=== PATIENT | male | born 1980 | race Hispanic/Latino ===

== ENCOUNTER 2021-08-19 07:45 | Emergency (ER) | payer OTHER ==
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
--- NOTE | 2021-08-19 08:25 | RAD REPORT ---
EXAM DESCRIPTION: RAD - Chest Single View - 08/19/2021 8:11 am CLINICAL HISTORY: CHEST PAIN COMPARISON: No comparisons FINDINGS: Lines: None. Lungs: No evidence of edema or pneumonia. Pleural: No significant pleural effusions or pneumothorax. Cardiac: The heart size is within normal limits. Bones: No acute fractures. Other: IMPRESSION: No acute cardiopulmonary disease.
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
[2021-08-19 09:02] VITALS: BP 122/85; TEMP 97.6; O2SAT 100
== END 2021-08-19 08:57 | disposition home or self-care (01) ==
LOC: ER 07:45
DX: G89.11 Acute pain due to trauma (principal); V59.49XA Driver of pick-up truck or van injured in collision with other motor vehicles in traffic accident, initial encounter; F17.210 Nicotine dependence, cigarettes, uncomplicated
CPT/HCPCS: 70450; 71045; 72125; 99284

== ENCOUNTER 2023-03-03 10:35 | Observation (INO) | payer OTHER ==
[2023-03-03] MEDS ORDERED: CLINDAMYCIN 900MG/D5W 900 MG/50 ML IVPB IV ONE (11:03)
[2023-03-03] MEDS ORDERED: NA CHLORIDE 0.9% 1,000 ML ONE ×2 (11:03→14:55)
[2023-03-03] MEDS ORDERED: MORPHINE 4 MG/ML SYR ONE (11:03)
[2023-03-03] MEDS ORDERED: ONDANSETRON 4 MG/2 ML VIAL ONE ×2 (11:03→12:56)
[2023-03-03] MEDS ORDERED: NA CHLORIDE 0.9% 100 ML ONE (11:04)
[2023-03-03] MEDS ORDERED: TDAP (DIPHTH,PERTUSS(ACELL),TET VAC) 0.5 ML VIAL IMVAC ONE (11:04)
[2023-03-03 11:12] LABS: Absolute Lymphocytes (CBC) 2.4 K/uL (0.7-4.9); Hematocrit 43.9 % (39.6-49.0); Lymphocytes % 39.8 % (15.3-44.8); MCV 90.6 fL (80-100); Platelets 165 thou/uL (152-406); RBC Red Blood Cell Count 4.84 M/uL (4.33-5.43)
[2023-03-03 11:16] LABS: Protime INR 0.95
--- NOTE | 2023-03-03 11:23 | RAD REPORT ---
EXAM DESCRIPTION: RAD - Chest Single View - 03/03/2023 11:18 am CLINICAL HISTORY: DYSPNEA Chest pain. COMPARISON: Chest Single View dated 08/19/2021 FINDINGS: Portable technique limits examination quality. The lungs are grossly clear. The heart is normal in size. No displaced fractures. IMPRESSION: No acute intrathoracic process suspected.
[2023-03-03 11:33] LABS: Bilirubin Total 0.4 mg/dL (0.2-1.0); Potassium 3.7 mEq/L (3.5-5.1); Protein, Total 7.6 g/dL (6.4-8.2)
--- NOTE | 2023-03-03 12:08 | RAD REPORT ---
EXAM DESCRIPTION: CT - Abdomen Angio - 03/03/2023 11:30 am CLINICAL HISTORY: Abdominal pain radiating to the back. r/o foreign body COMPARISON: Pelvis Angio dated 03/03/2023 TECHNIQUE: CT angiography of the abdomen and pelvis was performed with MIPs. All CT scans are performed using dose optimization technique as appropriate and may include automated exposure control or mA/KV adjustment according to patient size. FINDINGS: The lower lung bases are clear. The liver demonstrates no focal mass or biliary dilatation.The spleen, pancreas, adrenal glands and k idneys are within normal limits for arterial phase imaging. No significant flow abnormality is seen of the abdominal aorta and major visceral arteries. Both comm on and external iliac arteries are normal. No bowel obstruction, free fluid or abscess.There is evidence of a right lower quadrant penetrating w ound. This appears far-lateral from the right groin vessels. There is no evidence of a radiopaque for eign body. Please note that wood can be difficult to visualize by CT. No fracture seen. IMPRESSION: No significant flow abnormality is seen in the abdomen and pelvis vasculature. Penetrating wound is seen right lower quadrant lateral to the right groin. This is lateral to the rig ht inguinal vessels. No radiopaque foreign body seen, please note would can be difficult to visualize on CT.
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
--- NOTE | 2023-03-03 12:11 | ER ---
Nurse's Notes [facility] Name: Ramo Elam Age: 42 yrs Sex: Male : 1980 Arrival Date: 03/03/2023 Time: 10:35 Bed 4 Private MD: Diagnosis: Puncture wound with foreign body, right thigh, initial encounter Presentation: 03/03 10:38 Chief complaint: Patient states: piece of wood got thrown to right groin while using a aa5 table saw. Puncture wound noted to right groin, mild bleeding noted. 10:38 Coronavirus screen: At this time, the client does not indicate any symptoms associated aa5 with coronavirus-19. Ebola Screen: Patient denies travel to an Ebola-affected area in the 21 days before illness onset. Initial Sepsis Screen: Does the patient meet any 2 criteria? No. Patient's initial sepsis screen is negative. Does the patient have a suspected source of infection? No. Patient's initial sepsis screen is negative. Risk Assessment: Do you want to hurt yourself or someone else? Patient reports no desire to harm self or others. Onset of symptoms was March 03, 2023. 10:38 Acuity: LUCINA 2 aa5 10:38 Method Of Arrival: Wheelchair aa5 Historical: - Allergies: 10:38 No Known Allergies; aa5 - PMHx: 10:38 prediabetes; aa5 - PSHx: 10:38 Appendectomy; aa5 - Immunization history:: Last tetanus immunization: >5 years . - Social history:: Smoking status: Patient reports the use of cigarette tobacco products, denies chronic smoking, but will smoke occasionally. Screenin:40 [facility] ED Fall Risk Assessment (Adult) History of falling in the last 3 months, kc6 including since admission No falls in past 3 months (0 pts) Confusion or Disorientation No (0 pts) Intoxicated or Sedated No (0 pts) Impaired Gait No (0 pts) Mobility Assist Device Used No (0 pt) Altered Elimination No (0 pt) Score/Fall Risk Level 0 - 2 = Low Risk. Abuse screen: Denies threats or abuse. Denies injuries from another. Nutritional screening: No deficits noted. Tuberculosis screening: No symptoms or risk factors identified. Assessment: 10:38 General: Appears uncomfortable, Behavior is calm, cooperative. Pain: Complains of pain aa5 in right groin Pain radiates to right leg Pain currently is 8 out of 10 on a pain scale. Quality of pain is described as sharp, shooting, Is continuous. Neuro: Level of Consciousness is awake, alert, obeys commands, Oriented to person, place, time, situation. Cardiovascular: Heart tones S1 S2 present Rhythm is regular. Respiratory: Airway is patent Respiratory effort is even, unlabored, Respiratory pattern is regular, symmetrical. GI: Abdomen is round non-distended, Bowel sounds present X 4 quads. Abd is soft and non tender X 4 quads. Patient currently denies nausea, vomiting. : No signs and/or symptoms were reported regarding the genitourinary system. EENT: No signs and/or symptoms were reported regarding the EENT system. Derm: Skin is pink, warm \T\ dry. Puncture wound that is jagged noted to right groin, swelling noted to site, mild bleeding noted. Musculoskeletal: Range of motion: intact in all extremities. 10:42 Reassessment: Puncture wound to right groin dressed with iodine soaked gauze and foam aa5 tape by Dr. Wright. . 11:20 Reassessment: Patient is alert, oriented x 3, equal unlabored respirations, skin aa5 warm/dry/pink. Patient states feeling better. 11:42 Reassessment: Patient appears in no apparent distress at this time. No changes from [facility] previously documented assessment. Patient and/or family updated on plan of care and expected duration. Pain level reassessed. Patient is alert, oriented x 3, equal unlabored respirations, skin warm/dry/pink. 11:50 Reassessment: Dr. Larios at bedside with Dr. Wright speaking with pt regarding 6 surgery. 11:55 Reassessment: Dr. Larios (surgeon) at bedside . aa5 12:18 Reassessment: Patient is alert, oriented x 3, equal unlabored respirations, skin aa5 warm/dry/pink. Vital Signs: 10:38 BP 123 / 78; Pulse 72; Resp 20 S; Temp 97.7(O); Pulse Ox 99% on R/A; Weight 95.25 kg aa5 (R); Height 5 ft. 7 in. (R); 11:54 BP 130 / 92; Pulse 66; Resp 17 S; Pulse Ox 100% on R/A; kc6 10:38 Body Mass Index 32.89 (95.25 kg, 170.18 cm) aa5 [facility] Coma Score: 11:02 Eye Response: spontaneous(4). Motor Response: obeys commands(6). Verbal Response: camilla oriented(5). Total: 15. ED Course: 10:38 Patient arrived in ED. iw 10:38 Arm band placed on Patient placed in an exam room, on a stretcher. aa5 10:38 Patient has correct armband on for positive identification. Placed in gown. Bed in low kc6 position. Call light in reach. Side rails up X2. Adult w/ patient. 10:40 Miguelangel Cifuentes MD is Attending Physician. rn 10:40 Jose Wright MD is Attending Physician. rn 10:43 Liz Perez RN is Primary Nurse. aa5 10:45 Triage completed. aa5 10:51 Inserted saline lock: 20 gauge in right antecubital area, using aseptic technique. kc6 ,using aseptic technique. placed by YANETH Means Blood collected. 11:20 Chest Single View XRAY In Process Unspecified. EDMS 11:32 Abdomen Angio In Process Unspecified. EDMS 11:32 Pelvis Angio In Process Unspecified. EDMS 12:07 Anjum Larios MD is Hospitalizing Provider. camilla 12:18 No provider procedures requiring assistance completed. Patient admitted, IV remains in aa5 place. 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 Exp: kc6 08/20/2023. Lot #: [id number]. } Route: IM; Site: right deltoid; 11:55 Follow up: Response: No adverse reaction aa5 11:09 Drug: NS 0.9% IV 1000 ml Route: IV; Rate: 1 bolus; Site: right antecubital; 6 12:00 Follow up: IV Status: Completed infusion aa5 11:09 Drug: Clindamycin IVPB 900 mg Route: IVPB; Infused Over: 30 mins; Site: right kc6 antecubital; 12:00 Follow up: IV Status: Completed infusion aa5 11:10 Drug: morphine IVP or IV 4 mg Route: IVP; Infused Over: 4 mins; Site: right antecubital;[facility] 11:20 Follow up: Response: No adverse reaction aa5 11:10 Drug: Ondansetron IVP 4 mg Route: IVP; Site: right antecubital; kc6 11:20 Follow up: Response: No adverse reaction aa5 12:58 Not Given (PANDA Gilmore to administer in OR): ceFAZolin IVPB 2 grams IVPB once over 30 aa5 mins; (mix in 100 mL NS) Medication: 11:09 Vaccine Information Statement (VIS) provided today. Questions and/or concerns aa5 addressed. VIS edition date: March 08, 2021. Outcome: 12:10 Decision to Hospitalize by Provider. camilla 12:18 Admitted to OR accompanied by nurse, via stretcher, with chart, Other Report given to aa5 PANDA Gilmore (OR nurse) 12:18 Condition: stable 12:18 Instructed on the need for admit, Demonstrated understanding of instructions. 12:19 Patient left the ED. aa5 Signatures: Dispatcher [employer] EDMS Jose Wright MD MD cha Williams, Irene, RN Miguelangel Cabrales MD MD rn Calderon, Audri, RN RN aa5 Yin Bridges RN RN kc6
[2023-03-03] MEDS ORDERED: ACETAMINOPHEN 500 MG TAB PO PRN (12:37)
[2023-03-03] MEDS ORDERED: MORPHINE 4 MG/ML SYR IV PRN (12:37)
[2023-03-03] MEDS ORDERED: ONDANSETRON 4 MG/2 ML VIAL IV PRN ×2 (12:37→13:57)
[2023-03-03] MEDS: NA CHLORIDE 0.9% 1,000 ML IV SCH ×4 (12:41→23:21)
[2023-03-03] MEDS: CEFAZOLIN SODIUM 1 GM/VIAL ONE ×2 (12:45→13:28)
[2023-03-03] MEDS ORDERED: Ringers Lactate 1,000 ML IV ONE (12:55)
[2023-03-03] MEDS ORDERED: FENTANYL CITR 100 MCG/2 ML ONE (12:56)
[2023-03-03] MEDS ORDERED: ROCURONIUM 50 MG/5 ML VIAL IV ONE (12:56)
[2023-03-03] MEDS ORDERED: propofoL 200 MG/20 ML VIAL IV ONE (12:56)
[2023-03-03] MEDS ORDERED: MIDAZOLAM HCL 2 MG/2 ML INJ ONE (12:56)
[2023-03-03] MEDS ORDERED: LIDOCAINE 2% MPF 5 ML VIAL ONE (13:00)
[2023-03-03] MEDS ORDERED: GLYCOPYRROLATE 0.2 MG/ML SYR ONE (13:52)
[2023-03-03] MEDS ORDERED: NEOSTIGMINE 1 MG/ML -10 ML VIAL ONE (13:52)
[2023-03-03] MEDS ORDERED: KETOROLAC 30 MG/ML INJ ONE (13:52)
[2023-03-03] MEDS ORDERED: SODIUM CHLORIDE 0.9% 10ML INJ IV PRN (13:57)
[2023-03-03] MEDS ORDERED: HYDROMORPHONE HCL 1 MG/ML INJ IV PRN (13:57)
--- NOTE | 2023-03-03 13:57 | P.BOP ---
Preoperative diagnosis: Traumatic penetrating wound with retained wood Postoperative diagnosis: same Primary procedure: Right groin wound exploration with excisional debridement down to muscle Secondary procedure: and removal of large piece of wood Estimated blood loss: <10cc Specimen: wood Findings: larger piece of wood, penetrating fascia and muscle fibers Anesthesia: General Complications: None Implants: nugauze packing Transferred to: Recovery Room Condition: Good
[2023-03-03] MEDS ORDERED: HYDROCODONE/APAP 5/325 MG TAB PO PRN (14:02)
[2023-03-03 15:19] VITALS: BMI 34.4
[2023-03-03] MEDS: METRONIDAZOLE 500mg IVPB 500 MG/100 ML BAG IV SCH ×2 (17:12→23:22)
--- NOTE | 2023-03-03 18:02 | RAD REPORT ---
EXAM DESCRIPTION: CT - Pelvis Angio - 03/03/2023 11:30 am CLINICAL HISTORY: Abdominal pain radiating to the back. r/o foreign body COMPARISON: Pelvis Angio dated 03/03/2023 TECHNIQUE: CT angiography of the abdomen and pelvis was performed with MIPs. All CT scans are performed using dose optimization technique as appropriate and may include automated exposure control or mA/KV adjustment according to patient size. FINDINGS: The lower lung bases are clear. The liver demonstrates no focal mass or biliary dilatation. The spleen, pancreas, adrenal glands and kidneys are within normal limits for arterial phase imaging. No significant flow abnormality is seen of the abdominal aorta and major visceral arteries. Both comm on and external iliac arteries are normal. No bowel obstruction, free fluid or abscess. There is evidence of a right lower quadrant penetrating wound. This appears far-lateral from the right groin vessels. There is no evidence of a radiopaque fo reign body. Please note that wood can be difficult to visualize by CT. No fracture seen. IMPRESSION: No significant flow abnormality is seen in the abdomen and pelvis vasculature. Penetrating wound is seen right lower quadrant lateral to the right groin. This is lateral to the rig ht inguinal vessels. No radiopaque foreign body seen, please note would can be difficult to visualize on CT.
--- NOTE | 2023-03-03 18:03 | P.CNS ---
Date of Consult: 03/03/23 Reason for Consult: Medical management Requesting Physician: Anjum Larios Chief Complaint: Right groin wound. History of Present Illness: Patient is a 42-year-old male with a past medical history significant for prediabetes, nicotine dependence who presents with complaint of leg injury located in the right groin. Patient reported that he was using a table saw to cut a piece of wood at work when a piece of the wood lodged into his right groin resulting in an open wound. Patient rated pain as 4/10 in severity and described pain as aching in quality. Patient denies any other signs and symptoms. Symptoms are aggravated or relieved by nothing. Patient presented to the hospital for medical evaluation. Surgeon was consulted and patient was taken to the OR for exploration, removal of foreign body and debridement of devitalized tissue. [facility] hospitalist group was consulted for medical management. Allergies No Known Allergies Allergy (Verified 09/02/16 12:48) Home medications list reviewed: No Home Medications: NK [No Home Meds] 03/03/23 - Past Medical/Surgical History Diabetic: No -: Prediabetes -: Nicotine dependence -: Obesity Past Surgical History: Reviewed- Non-Contributory - Social History Smoking Status: Current some day smoker Counseled patient to stop smoking for: less than 10 minutes Smoking therapy provided: Yes Patient receptive to therapy: No Alcohol use: Yes CD- Drugs: No Caffeine use: Yes Place of Residence: Home Review of Systems General: Unremarkable Eyes: Unremarkable ENT: Unremarkable Respiratory: Unremarkable Cardiovascular: Unremarkable Gastrointestinal: Unremarkable Genitourinary: Unremarkable Musculoskeletal: Leg Pain Integumentary: Other (Right groin wound) Neurological: Unremarkable Lymphatics: Unremarkable Physical Examination Temp Pulse Resp BP Pulse Ox 97.4 F 56 14 126/84 100 03/03/23 16:00 03/03/23 16:00 03/03/23 16:00 03/03/23 16:00 03/03/23 16:00 General: Alert, In no apparent distress, Oriented x3, Cooperative HEENT: Atraumatic, PERRLA, Mucous membr. moist/pink, EOMI, Sclerae nonicteric Neck: Supple, 2+ carotid pulse no bruit, No LAD, Without JVD or thyroid abnormality Respiratory: Clear to auscultation bilaterally, Normal air movement Cardiovascular: No edema, Regular rate/rhythm, Normal S1 S2 Capillary refill: <2 Seconds Gastrointestinal: Normal bowel sounds, Soft and benign, No tenderness Musculoskeletal: No clubbing, No tenderness Integumentary: No rashes, Other (Right groin wound) Neurological: Normal speech, Normal tone, Normal affect Lymphatics: No axilla or inguinal lymphadenopathy Laboratory Data (last 24 hrs) 03/03/23 03/03/23 03/03/23 10:54 10:54 10:54 WBC 6.00 Hgb 14.7 Hct 43.9 Plt Count 165 PT 10.4 INR 0.95 Sodium 137 Potassium 3.7 BUN 18 Creatinine 1.11 Glucose 137 H Total Bilirubin 0.4 AST 17 ALT 34 Alkaline Phosphatase 56 Conclusions/Impression: --Right groin wound. Status post exploration with excisional debridement down to muscle and removal of large piece of wood. Surgeon on board. Continue antibiotics. Continue wound care per surgeon's instructions. Will await further recommendation from surgeon.. --Acute pain. We will manage pain with current pain medication regimen. --Prediabetes. We will monitor blood sugar levels. Hemoglobin A1c pending. Continue supportive care. --Nicotine dependence. Patient reports that he is an occasional\social smoker. Patient counseled on tobacco cessation. Refuses nicotine patch. --Class I obesity. Likely secondary to excess calories intake. Patient counseled on weight reduction, diet and excise therapy. --DVT prophylaxis with SCDs. Physician Review: Patient Assessed, Agree with Above Assessment and Plan Critical Care: No
[2023-03-03] MEDS: CEFOXITIN 1 GM in NA CHLORIDE 0.9% 50 ML IVPB SCH (18:17)
--- NOTE | 2023-03-03 18:30 | HP ---
Date of Admission: 03/03/2023 Chief Complaint: Traumatic wound on the right groin, status post puncture wound from a flying wood a fter using a table saw. History Of Present Illness: This is the case of a 42-year-old patient, who was working with a table saw, cutting wood. He described very powerful table saw and the last piece of wood just before he fi nished it got projected out of this machine and punctured his right groin, went through the shirt, we nt through the pants. When he was seen in the ER, he was seen with an open wound and a possible fore ign body on that region. They did not want to explore the area in the ER. They called me as an marry gency to explore the wound. At this moment, they already have a CAT scan angio that claimed that the major blood vessels are not involved in this, so they asked me to take the patient to the OR for exp loration, removal of foreign body, and debridement of devitalized tissue. The patient is Pashto-spe aking. I am talking to him in his language. He says that it was just an accident and he put some pr essure in that area. There is no major active bleeding. He is moving the extremity completely and h e has no motor or sensory deficits. Allergies: NONE. Past Medical History: He said at one point he told that he has prediabetes, but he is not taking any medication and is controlling sugar. Past Surgical History: Includes a laparoscopic appendectomy in the past. Social History: He smokes a cigarette of 2 during the daytime and he was counseled about smoking abiel sation for the last 10 minutes and also he drinks alcohol occasionally, but he can be a week or 2 wit hout any problem. Family History: Noncontributory. Review of Systems: No shortness of breath. No chest pain. No fever. No dizziness. He has full range of motion in the lower extremity with no sensory deficits. Physical Examination: General: The patient is awake, alert. HEENT: Pupils are equal and reactive. Anicteric. Neck: Supple. Chest: Clear. Heart: S1, S2. Abdomen: Soft and depressible. No guarding or rebound. No peritoneal signs. Extremity: Good capillary refill. Peripheral pulses, dorsalis pedis, popliteal, and femoral bilater ally. Now, he has this open wound with uneven edges on the right groin region just lateral to the fe moral blood vessels. When the ER physician put a finger on it, he noticed the patient to have wood p articles in that area. He is afraid to explore anymore or remove anything and left the wound intact to be explored under anesthesia. Once again, there is an open area, may be fabric, may be just compo nent of the wood in that region and in order to minimize any other injuries, we will like to slow thi s under anesthetic. Neuro: Cranial nerves 2 through 12 grossly within normal limits. Laboratory Data: Blood work shows a WBC count of 6 with INR of 0.95 and glucose 137. A CAT scan of the abdomen and pelvis interpreted by Dr. Bueno as no significant flow abnormalities seen in the abdom en and pelvis vasculature. Penetrating wound seen in the right lower quadrant lateral to the right g roin, lateral to the right inguinal vessels. No radiopaque foreign body seen, but always at this chance ne, the wood cannot be seen on the CAT scan. No fracture seen. Assessment: Penetrating puncture wound, traumatic on the right groin region with retained foreign omid dy and devitalized tissue. Apparently the CT angio done does not seem to be involving the major vasc ulature of that area. So, we are going to take him to surgery for wound exploration, debridement, re moval of if any foreign body found in that area with benefits, alternatives, and risks including, but not limited to infection, bleeding, damage to adjacent structures, anesthesia complication, nonheali ng wound, MD, and even . At this moment, we did not see any sensory deficit at least movement w ise. He understands that sometimes it may be mass or may not be found at the beginning. He also und erstands the importance of wound care after. The patient was emergently booked in OR. There was madalyn e bleeding coming from that region, but apparently it is mainly from the skin, does not seem to be co grace in any pulsation from that wound at all. NETO/RAULITOL Voice ID: [id number]
[2023-03-03] MEDS: INSULIN -REGULAR HUMAN 50 UNIT/0.5 ML ML SQ SCH (19:34)
[2023-03-03 20:18] LABS: Phosphorus 2.3 mg/dL (2.5-4.9)
[2023-03-04] MEDS: CEFOXITIN 1 GM in NA CHLORIDE 0.9% 50 ML IVPB SCH ×2 (00:23→06:06)
[2023-03-04 04:01] LABS: Absolute Lymphocytes (CBC) 1.1 K/uL (0.7-4.9); Hematocrit 42.5 % (39.6-49.0); Lymphocytes % 7.5 % (15.3-44.8); MPV 9.3 fL (7.6-11.3); Platelets 164 thou/uL (152-406); RBC Red Blood Cell Count 4.67 M/uL (4.33-5.43)
[2023-03-04 04:11] LABS: Potassium 4.3 mEq/L (3.5-5.1)
[2023-03-04] MEDS: NA CHLORIDE 0.9% 1,000 ML IV SCH ×2 (05:00→10:11)
[2023-03-04 05:18] LABS: Blood Morphology Comment NOT SEEN (NOT SEEN); Platelet Estimate ADEQ
[2023-03-04] MEDS: METRONIDAZOLE 500mg IVPB 500 MG/100 ML BAG IV SCH (05:21)
[2023-03-04 06:01] VITALS: O2SAT 98
--- NOTE | 2023-03-04 07:16 | P.PN ---
Date of Service: 03/04/23 Subjective: feeling better no new / worsening problems afebrile ROS: 10 point ROS as noted above, otherwise negative Physical Exam: GEN: Alert, oriented, NAD HEENT: Normal conjunctiva, sclera anicteric CV: Regular rate and rhythm, no edema Pulm: Nonlabored respirations on room air Integumentary: dressing in place Neuro: Normal speech, normal affect vitals reviewed Problem List: Right groin wound, now s/p I&D 03/04 Prediabetes Nicotine dependence Class I obesity Right groin wound, now s/p I&D 03/04 CTA abdomen (03/03): No significant flow abnormality is seen in the abdomen and pelvis vasculature Penetrating wound is seen right lower quadrant lateral to the right groin. This is lateral to the right inguinal vessels. No radiopaque foreign body seen s/p debridement down to muscle and removal of large piece of wood. (03/04) Given Flagyl/ancef 03/03 local wound care PRN pain medication Cont protonix Prediabetes A1c: 6.0 Nicotine dependence Patient reports that he is an occasional\social smoker. Patient counseled on tobacco cessation. Refuses nicotine patch. Class I obesity Likely secondary to excess calories intake. Patient counseled on weight reduction, diet and excise therapy. anticipated dc home today no change in home meds needed in regard to pre-diabetes, f/u up with PCP dc per Dr. Larios
[2023-03-04] MEDS: INSULIN -REGULAR HUMAN 50 UNIT/0.5 ML ML SQ SCH (07:30)
[2023-03-04] MEDS ORDERED: PANTOPRAZOLE 40 MG INJ IVP SCH (09:00)
[2023-03-04 10:52] VITALS: BP 131/71; TEMP 98
--- NOTE | 2023-03-04 11:42 | P.DS ---
Admission Date: 03/03/23 Discharge Date: 03/04/23 Disposition: ROUTINE DISCHARGE Discharge Condition: GOOD Reason for Admission: Right groin wound. Vital Signs/Physical Exam: Temp Pulse Resp BP Pulse Ox 98 F 45 L 16 131/71 99 03/04/23 08:00 03/04/23 08:00 03/04/23 08:00 03/04/23 08:00 03/04/23 08:00 General: Alert, In no apparent distress, Oriented x3, Cooperative HEENT: PERRLA Neck: Supple Respiratory: Normal air movement Cardiovascular: Normal pulses, Regular rate/rhythm Gastrointestinal: Soft and benign, No ascites, No tenderness, No masses, No rebound, No guarding Musculoskeletal: No erythema, No tenderness, No warmth, Other (intact surgical site with no pulsating bleeding. Dressing changed by me.) Integumentary: No rashes, No breakdown, No erythema, No warmth, No cyanosis Neurological: Normal speech, Normal strength at 5/5 x4 extr, Normal tone, Sensation intact, Cranial nerves 3-12 intact, Normal reflexes 2+, Normal affect External genitalia: No edema Rectal: Deferred Laboratory Data at Discharge: WBC 14.40 thou/uL (4.3-10.9) H 03/04/23 03:20 Hgb 14.2 g/dL (13.6-17.9) 03/04/23 03:20 Hct 42.5 % (39.6-49.0) 03/04/23 03:20 Plt Count 164 thou/uL (152-406) 03/04/23 03:20 PT 10.4 SECONDS (9.5-12.5) 03/03/23 10:54 INR 0.95 03/03/23 10:54 Sodium 139 mEq/L (136-145) 03/04/23 03:20 Potassium 4.3 mEq/L (3.5-5.1) D 03/04/23 03:20 BUN 15 mg/dL (7-18) 03/04/23 03:20 Creatinine 0.92 mg/dL (0.70-1.30) 03/04/23 03:20 Glucose 141 mg/dL (74-106) H 03/04/23 03:20 Phosphorus 2.3 mg/dL (2.5-4.9) L 03/03/23 19:42 Magnesium 2.0 mg/dL (1.6-2.4) 03/03/23 19:42 Total Bilirubin 0.4 mg/dL (0.2-1.0) 03/03/23 10:54 AST 17 U/L (15-37) 03/03/23 10:54 ALT 34 U/L (16-61) 03/03/23 10:54 Alkaline Phosphatase 56 U/L (45-117) 03/03/23 10:54 Triglycerides 61 mg/dL (<150) 03/04/23 03:20 Cholesterol 202 mg/dL (<200) H 03/04/23 03:20 HDL Cholesterol 72 mg/dL (40-60) H 03/04/23 03:20 Cholesterol/HDL Ratio 2.81 03/04/23 03:20 Home Medications: NK [No Home Meds] 03/03/23 Physician Discharge Instructions: Please call [phone] to comfirm appointment time Leave dressing intact for next 48h Diet: ADA Activity: No lifting more than 10 lbs Followup: Anjum Larios MD [ACTIVE - CAN ADMIT] - 03/06/23 10:00 am NONE,NONE [Primary Care Provider] - 1-2 Weeks
--- NOTE | 2023-03-20 02:15 | OP ---
Date of Procedure: 03/03/2023 Surgeon: Anjum Larios MD Preoperative Diagnosis: Traumatic penetrating wound with retained foreign body on the right proximal anterior thigh. Postoperative Diagnosis: Traumatic penetrating wound with retained foreign body on the right proxima l anterior thigh. Procedure: Right groin wound exploration with excisional debridement down to muscle, anterior fat wi th removal of large piece of wood, foreign body. Estimated Blood Loss: Less than 10 mL. Specimen: piece of wood penetrating anterior thigh compartment. Anesthesia: General plus local. Complications: None. Packing: Nu Gauze. Indication: This is the case of a male, who was working and while working, a piece of wood just got a way like a projectile and lodging in the anterior groin region. [facility] Even that the CAT scan cannot tell about a foreign body and also palpation s hows there is a foreign body in that region. A CT angio was done by the ER, found to have major bloo d vessel scare. The patient also is neurologically intact. So, we explained to him the need for wou nd exploration with debridement of devitalized tissue and removal of foreign body with benefits, alte rnatives, and risks including, but not limited to infection, bleeding, damage to adjacent structures, anesthesia complication, nonhealing wound, chronic sensory and motor deficits, DE, and even . He also understands this may not relieve his symptoms. He might need more than one surgical interven tion. He understood and signed a consent. Procedure In Detail: The patient was brought to the operating room, placed in supine position. Anes thesia was done without complication. Right thigh and groin were prepped and draped in sterile fashi on. A time-out was called. Local anesthesia was applied, but then after that, we proceeded to remov e the devitalized skin the patient has. Then, when we are going to the wound, we noticed that deep i nside there is a foreign body going from lateral to medial and from superior to inferior, that is goi ng between the anterior muscles proximally of the thigh. Some of the muscle had muscle fibers been a ffected by this foreign body, but we were able to extract it without resistance from that area. The muscle fibers seems to be going back together. No bleeding in that region. The skin on top of the a kristofer and subcutaneous tissue were carefully debrided lateralized from the trauma itself. The area was profusely irrigated and we used pulse lavage to make sure that we get by the contaminatio n of that area. I proceeded to leave the area open and packed with Nu Gauze. The patient tolerated the procedure well. This patient preoperatively has no motor or sensory deficits with good dorsiflex ion. No sensation issues. Full range of motion of the extremity and at the end of the case, still w ith good peripheral pulses, popliteal, femoral, and dorsalis pedis and posterior tibialis. The patie nt tolerated the procedure well. The patient sent to Recovery in stable condition. NETO/SCOTTIE Voice ID: [id number] Report ID: [id number]
== END 2023-03-04 12:26 | disposition home or self-care (01) ==
LOC: ER 10:35 → UNDOADMOB 12:13 → ERHOLD 12:13 → DS 12:13 → 2ND 14:25
PROVIDERS: ADMIT Surgery; ATTEND Surgery
PROC: 0KCQ0ZZ Extirpation of Matter from Right Upper Leg Muscle, Open Approach (ICD-10-PCS; principal; 2023-03-03 12:15)
DX: S31.143A Puncture wound of abdominal wall with foreign body, right lower quadrant without penetration into peritoneal cavity, initial encounter (principal); W45.8XXA Other foreign body or object entering through skin, initial encounter; Y93.89 Activity, other specified; Y92.69 Other specified industrial and construction area as the place of occurrence of the external cause; Y99.0 Civilian activity done for income or pay; F17.210 Nicotine dependence, cigarettes, uncomplicated; E66.9 Obesity, unspecified; Z68.34 Body mass index [BMI] 34.0-34.9, adult; Z23 Encounter for immunization; Z71.3 Dietary counseling and surveillance
CPT/HCPCS: 36415; 71045; 72191; 74175; 80048; 80053; 80061; 82947; 83036; 83735; 84100; 85025; 85610; 86850; 86900; 86901; 88304; 90471; 94010; 96365; 96375; 97116; 97161; 99285; C9113; J0690; J0694; J2001; J2250; J2405; J2704; J2710; J3010; J7030; J7120; Q9967